=== PATIENT | female | born 1985 | race Caucasian/White ===

== ENCOUNTER 2016-06-15 19:34 | Emergency (ER) | payer MEDICAID ==
[2016-06-15 19:54] VITALS: TEMP 98.9; BMI 32.7
[2016-06-15 20:19] LABS: LEUKOCYTES/URINE TRACE (NEGATIVE); NITRITE/URINE NEG (NEGATIVE); RBC/URINE 40-50 (0-5); URINE OCCULT BLOOD 2+ (NEG/TRACE); WBC/URINE 40-50 (0-5)
[2016-06-15] MEDS ORDERED: NS 1,000 ML IV ONE (20:22)
[2016-06-15] MEDS ORDERED: CEFTRIAXONE 1 GM in D5W 100 ML IV ONE (20:23)
--- NOTE | 2016-06-15 20:26 | EDPRACDOC ---
- General Information Chief Complaint: Female Urogenital Problems Stated Complaint: URINARY PROBLEMS PREG X 19 WEEKS Time Seen by Provider: 06/15/16 20:19 Information Source: Patient Mode Of Arrival: Car Home Medications: Home Medications Nitrofurantoin [Macrobid] 100 mg PO BID #14 cap 06/15/16 Ondansetron [Zofran Odt] 4 mg PO Q6H PRN #20 tab.rapdis 06/15/16 Vitamins/Fe Sulf/FA [ Multivit W Iron Tb] 1 tab PO DAILY Allergies/Adverse Reactions: Allergies Allergy/AdvReac Type Severity Reaction Status Date / Time No Known Allergies Allergy Verified 06/15/16 19:54 - History of Present Illness HPI: PT IS 20 WEEKS , STATES SHE HAS BEEN HAVING DYSURIA, FREQUENCY, AND HESITATION. STATES SHE CALLED HER PCP AND COULD NOT BEEN SEEN BUT WAS TOLD TO BE EVALUATED. DENIES FEVER, CHILLS, NAUSEA OR VOMITING. Onset: 1 DAY Urinary Pain Location: Reports: Suprapubic Symptom Onset: Reports: Spontaneous Pain Severity: Mild Pain Quality: Reports: Aching History of: Reports: Current : Yes (20 WEEKS) Oral Intake: Normal Urinary Output: Normal Associated Signs and Symptoms: Denies: Vaginal Discharge, Vaginal Bleeding, Vaginal Itching ED Past Medical History - History Reviewed Yes Nurses notes reviewed and agree except as marked EDM Review of Systems - Review of Systems ROS Negative Except as Marked: Yes All systems reviewed and were negative except as marked - Physical Exam Constitutional: Alert Oriented to: Time, Person, Place Last recorded Vital Signs: Last Vital Signs Temp 98.9 F 06/15/16 19:52 Pulse 95 06/15/16 19:52 Resp 18 06/15/16 19:52 BP 119/61 06/15/16 19:52 Pulse Ox 100 06/15/16 19:52 Oxygen Pulse Oxygen Saturation 100 O2 Device Room Air Oxygen Flow Rate Fraction of Inspired Oxygen ( FIO2) - HEENT Head: Normal ( normocephalic) Eye Exam: Normal (PERRL, EOMI, Sclera white) Oropharynx: Normal (Pharynx:Moist without exudate,Gums-no swelling) Nose: No Symptoms Reported (septum midline) Neck: Normal (FROM, trachea at midline) - Respiratory/Cardiovascular Respiratory: Normal - CTA (BBS clear to auscultation without adventitious sounds ) Cardiovascular: Normal (RRR without murmur, gallop or rub) - GI Auscultation: Normal (NABS) Palpation: Normal (Soft,No rebound or guarding, non distended) Tenderness: Mild, Suprapubic Johnson's Sign: Negative Rectal Exam: Deferred - Musculoskeletal Back: Normal (Non-Tender) Extremities: Normal (Normal tone, Pulses 2+ No cyanosis or edema, FROM) - Integumentary Skin: Normal, Warm, Dry Lymphatics: Normal (no adenopathy) - Neurologic Memory Impaired: Normal Motor Function: Normal (Normal tone, Pulses 2+ No cyanosis or edema, FROM) Cranial Nerve: Normal (CN II-X11 intact sensation, strength 5/5) Cerebellar: Normal Mood Description: Normal Perception: Normal - Differential Diagnosis UTI - Results Urine Color Yellow 06/15/16 19:55 Urine Clarity Cldy 06/15/16 19:55 Urine pH 6.0 (5.0-8.0) 06/15/16 19:55 Ur Specific Speed 1.030 (1.003-1.035) 06/15/16 19:55 Urine Protein 1+ (NEG/TRACE) H 06/15/16 19:55 Urine Glucose (UA) Neg (NEGATIVE) 06/15/16 19:55 Urine Ketones Neg (NEGATIVE) 06/15/16 19:55 Urine Occult Blood 2+ (NEG/TRACE) H 06/15/16 19:55 Urine Nitrite Neg (NEGATIVE) 06/15/16 19:55 Urine Bilirubin Neg (NEGATIVE) 06/15/16 19:55 Urine Urobilinogen <2.0 MG/DL (0-1) 06/15/16 19:55 Ur Leukocyte Esterase Trace (NEGATIVE) H 06/15/16 19:55 Urine RBC 40-50 (0-5) H 06/15/16 19:55 Urine WBC 40-50 (0-5) H 06/15/16 19:55 Ur Epithelial Cells 1+ 06/15/16 19:55 Urine Bacteria 1+ (NEG/FEW) H 06/15/16 19:55 Urine Mucus Mod (NEG/OCC) H 06/15/16 19:55 Lab Results 06/15/16 19:55 Urine Color Yellow Urine Clarity Cldy Urine pH 6.0 Ur Specific Speed 1.030 Urine Protein 1+ H Urine Glucose (UA) Neg Urine Ketones Neg Urine Occult Blood 2+ H Urine Nitrite Neg Urine Bilirubin Neg Urine Urobilinogen <2.0 Ur Leukocyte Esterase Trace H Urine RBC 40-50 H Urine WBC 40-50 H Ur Epithelial Cells 1+ Urine Bacteria 1+ H Urine Mucus Mod H Decision Time to Discharge: 21:18 - Departure Disposition: Home Condition: Stable Final Diagnosis: UTI in Instructions: Urinary Tract Infection in Women (ED), Dysuria Education/Counseling Given To: Patient Education/Counseling Given Regarding: Diagnosis, Treatment, Prognosis, Follow Up Referrals: Pepe Willingham MD [Staff Physician] - One Week Prescriptions: Nitrofurantoin [Macrobid] 100 mg PO BID #14 cap Ondansetron [Zofran Odt] 4 mg PO Q6H PRN #20 tab.rapdis PRN Reason: Nausea/Vomiting Additional Instructions: INCREASE FLUID INTAKE. FOLLOW UP WITH PRIMARY CARE PROVIDER NEXT WEEK. TAKE ALL ANTIBIOTICS PRESCRIBED. RETURN TO THE ED FOR WORSENING SYMPTOMS OR CONCERNS.
[2016-06-15] MEDS ORDERED: NITROFURANTOIN 100 MG CAP PO ONE (21:18)
[2016-06-15 21:29] VITALS: BP 128/74; PULSE 83
== END 2016-06-15 21:28 | disposition home or self-care (01) ==
LOC: ED 19:34
DX: O23.42 Unspecified infection of urinary tract in pregnancy, second trimester (principal); Z3A.19 19 weeks gestation of pregnancy
CPT/HCPCS: 81001; 99283; J3490; J0696; J7060